=== PATIENT | female | born 1930 | race Caucasian/White ===

== ENCOUNTER → 2016-08-27 | Outpatient (CLI) | payer MEDICARE, OTHER ==
[~2016-08-27] MED LIST: CARVEDILOL6.25 MG PO; CELEXA10 MG PO; CRESTOR20 MG PO; FISH OIL1 GM PO; IMDUR30 MG PO; NAMENDA5 MG PO; NEURONTIN300 MG PO; NORPACE150 MG PO; NORVASC5 MG PO
== END | disposition short-term general hospital (02) ==
LOC: CLCARD 09:52
DX: I25.10 Atherosclerotic heart disease of native coronary artery without angina pectoris (principal); I48.0 Paroxysmal atrial fibrillation; E78.5 Hyperlipidemia, unspecified; I10 Essential (primary) hypertension; Z86.73 Personal history of transient ischemic attack (TIA), and cerebral infarction without residual deficits